=== PATIENT | female | born 1960 | race Caucasian/White ===

== ENCOUNTER → 2016-06-21 | Outpatient (CLI) | payer OTHER ==
--- NOTE | 2016-06-21 16:37 | DX ---
Right foot, 3 views. History: Trauma, pain (R) ANKLE INJURY IN 02/2016-NOW W/DORSOLATERAL FOOT PAIN/TENDER. R/O FRACTURE Comparison examination:none available Findings: Moderate degenerative changes at the first MTP joint, with subchondral cystic change withi n the proximal phalanx. No fracture identified. Alignment is normal. Joint spaces are otherwise intact. Large plantar calcaneal spur incidentally noted. Impression: Negative for acute injury. First MTP osteoarthritis. Plantar calcaneal spur.
== END ==
LOC: BMCIMAGING 16:06
PROVIDERS: ATTEND Internal Medicine
DX: M19.071 Primary osteoarthritis, right ankle and foot (principal); M77.31 Calcaneal spur, right foot

== ENCOUNTER → 2017-04-29 | Outpatient (CLI) | payer OTHER | LOC: FIMAGING 12:31 | PROVIDERS: ATTEND Internal Medicine | DX: Z12.31 Encounter for screening mammogram for malignant neoplasm of breast (principal) | CPT/HCPCS: G0202 ==

== ENCOUNTER → 2018-05-20 | Outpatient (CLI) | payer OTHER | LOC: FIMAGING 09:57 | PROVIDERS: ATTEND Internal Medicine | DX: Z12.31 Encounter for screening mammogram for malignant neoplasm of breast (principal) ==